=== PATIENT | male | born 1995 | race Caucasian/White ===

== ENCOUNTER 2025-02-04 22:55 | Inpatient (IN) | payer OTHER ==
[2025-02-04 23:14] VITALS: BMI 22.7
[2025-02-04] MEDS ORDERED: methaDONE HCL 10 MG TABLET (FOR DETOX USE ONLY) PO PRN (23:35)
[2025-02-04] MEDS ORDERED: ONDANSETRON *ODT* 4 MG TABLET SL PRN (23:35)
[2025-02-04] MEDS ORDERED: IBUPROFEN 600 MG TABLET (FP) PO PRN (23:35)
[2025-02-04] MEDS ORDERED: MAGNESIUM HYDROX 2400MG/30ML ORAL SUSPENSION 30 ML CUP PO PRN (23:35)
[2025-02-04] MEDS ORDERED: BENZONATATE 200 MG CAPSULE PO PRN (23:35)
[2025-02-04] MEDS ORDERED: clonazePAM 0.5 MG ODT TABLETS SL PRN (23:35)
[2025-02-04] MEDS ORDERED: BENZOCAINE/MENTHOL (CHLORASEPTIC ) LOZENGE MM PRN (23:35)
[2025-02-04] MEDS ORDERED: guaiFENesin 600 MG TABLET.ER (FP) PO PRN (23:35)
[2025-02-04] MEDS ORDERED: DICYCLOMINE HCL 10 MG CAPSULE PO PRN (23:35)
[2025-02-04] MEDS ORDERED: POLYETHYLENE GLYCOL (HEALTHYLAX) 3350 17 GM PACKET PO PRN (23:35)
[2025-02-04] MEDS ORDERED: BISMUTH SUBSALICYLATE 524 MG/30 ML PO PRN (23:35)
[2025-02-04] MEDS ORDERED: MAG HYDROX/AL HYDROX/SIMETH 30 ML UNIT-DOSE CUP PO PRN (23:35)
[2025-02-04] MEDS ORDERED: LOPERAMIDE HCL 2 MG CAPSULE PO PRN (23:35)
[2025-02-04] MEDS ORDERED: IBUPROFEN 400 MG TABLET (FP) PO PRN (23:35)
[2025-02-04] MEDS ORDERED: ACETAMINOPHEN 325 MG TABLET (FP) PO PRN (23:35)
[2025-02-04] MEDS ORDERED: NALOXONE (NARCAN) HCL 4 MG/0.1 ML SPRAY NS PRN (23:35)
[2025-02-05] MEDS ORDERED: methaDONE HCL 10 MG TABLET (FOR DETOX USE ONLY) ONE (00:39)
[2025-02-05] MEDS: methaDONE HCL 10 MG TABLET (FOR DETOX USE ONLY) PO ONE ×2 (00:41→11:05)
[2025-02-05] MEDS: METHOCARBAMOL 500 MG TABLET PO PRN (10:17)
[2025-02-05] MEDS: PRENATAL VITAMINS W/ FOLIC ACID TABLET (FP) PO SCH (10:17)
[2025-02-05] MEDS: cloNIDine HCL 0.1 MG TABLET PO PRN (10:17)
[2025-02-05] MEDS: NICOTINE 14 MG/24 HOURS TOPICAL PATCH TD SCH (10:17)
[2025-02-05] MEDS: NICOTINE POLACRILEX 4 MG GUM BUC PRN (10:20)
[2025-02-05] MEDS ORDERED: cloNIDine HCL 0.1 MG TABLET PO PRN (10:52)
[2025-02-05 11:19] LABS: HEMATOCRIT 49.9 % (40.1-51.0); MCHC 32.1 g/dl (32.3-36.5); MEAN PLT VOLUME 11.7 fl (9.4-12.4); PLATELET COUNT 265 x10^3/uL (163-337); RDW 13.6 % (11.9-15.3)
[2025-02-05 11:24] LABS: CHLORIDE 108 mmol/L (98-107); POTASSIUM 4.4 mmol/L (3.5-5.1); SODIUM 144 mmol/L (136-145)
[2025-02-05 11:35] LABS: SGOT/AST 21 U/L (15-37); SGPT/ALT 29 U/L (13-61)
[2025-02-05 11:36] LABS: ANION GAP 8 mmol/L (4-13); BLOOD UREA NITROGEN 11.2 mg/dL (7-18); CALCIUM 10.1 mg/dL (8.5-10.1); CO2 29 mmol/L (21-32); GLUCOSE,RANDOM 101 mg/dL (74-106)
[2025-02-05 11:37] LABS: BILIRUBIN,TOTAL 0.4 mg/dL (0.2-1)
[2025-02-05 11:39] LABS: ALK PHOS 93 U/L (45-117)
[2025-02-05 11:41] LABS: TOT PROT 7.9 g/dl (6.4-8.2)
[2025-02-05 18:50] LABS: SYPHILIS W/ RPR CONF NON-REACTIVE (NONREACTIVE)
[2025-02-05 19:22] LABS: HIV INTERPRETATION NEGATIVE (NEGATIVE)
[2025-02-05 19:23] LABS: HCV DIAGNOSTIC IN-HOUSE W/RFLX NON-REACTIVE (NONREACTIVE)
[2025-02-05] MEDS: MIRTAZAPINE 15 MG TABLET (FP) PO SCH (22:01)
[2025-02-05] MEDS: MELATONIN 5 MG TABLETS PO SCH (22:01)
[2025-02-05] MEDS: THIAMINE 100 MG TABLET PO SCH (22:01)
[2025-02-05] MEDS: methaDONE HCL 10 MG TABLET (FOR DETOX USE ONLY) PO PRN (22:05)
[2025-02-06] MEDS ORDERED: methaDONE HCL 10 MG TABLET (FOR DETOX USE ONLY) PO ONE (10:00)
[2025-02-07] MEDS: methaDONE HCL 10 MG TABLET (FOR DETOX USE ONLY) PO ONE (10:15)
[2025-02-08] MEDS ORDERED: methaDONE HCL 10 MG TABLET (FOR DETOX USE ONLY) PO ONE (10:00)
[2025-02-09] MEDS: methaDONE HCL 10 MG TABLET (FOR DETOX USE ONLY) PO ONE (10:08)
[2025-02-10 08:47] VITALS: BP 120/67; PULSE 78; RESP 16; TEMP 97.7
== END 2025-02-10 09:43 | disposition home or self-care (01) | DRG 773 ==
LOC: YASAS 22:55 → Y3N 02-05 00:56
PROVIDERS: ADMIT Family Medicine; ATTEND Family Medicine
PROC: HZ2ZZZZ Detoxification Services for Substance Abuse Treatment (ICD-10-PCS; principal; 2025-02-05)
DX: F11.23 Opioid dependence with withdrawal (principal); F14.20 Cocaine dependence, uncomplicated; F13.20 Sedative, hypnotic or anxiolytic dependence, uncomplicated; F16.20 Hallucinogen dependence, uncomplicated; F12.20 Cannabis dependence, uncomplicated; F17.210 Nicotine dependence, cigarettes, uncomplicated; F19.24 Other psychoactive substance dependence with psychoactive substance-induced mood disorder; G47.00 Insomnia, unspecified
CPT/HCPCS: 36415; 80053; 80307; 85027; 86780; 86803; 87389; 93005; 93010